=== PATIENT | female | born 1965 | race Caucasian/White ===

== ENCOUNTER 2024-10-18 09:58 | Emergency (ER) | payer MEDICARE, MEDICAID | END 2024-10-18 12:20 | disposition home or self-care (01) | LOC: VM.ED 09:58 | DX: S06.0XAA Concussion with loss of consciousness status unknown, initial encounter (principal); I10 Essential (primary) hypertension; Z79.01 Long term (current) use of anticoagulants; Z79.4 Long term (current) use of insulin; Z87.891 Personal history of nicotine dependence; W01.198A Fall on same level from slipping, tripping and stumbling with subsequent striking against other object, initial encounter; Y93.89 Activity, other specified | CPT/HCPCS: 70450; 72125; 99283; 99284 ==